=== PATIENT | female | born 1980 | race Caucasian/White ===

== ENCOUNTER 2016-04-16 17:17 | Emergency (ER) | payer OTHER ==
[2016-04-16] MEDS ORDERED: KETOROLAC 30 MG/ML VIAL ONE (18:59)
[2016-04-16] MEDS ORDERED: CEFTRIAXONE 250 MG VIAL ONE (21:15)
[2016-04-16] MEDS ORDERED: AZITHROMYCIN 250 MG TAB ONE (21:15)
== END 2016-04-16 21:45 | disposition home or self-care (01) ==
LOC: ER 17:17
DX: N39.0 Urinary tract infection, site not specified (principal); N76.0 Acute vaginitis
CPT/HCPCS: 36415; 76830; 80053; 81001; 83690; 84703; 85025; 87088; 87491; 87591; 87800; 96372; 96374